=== PATIENT | female | born 1970 | race Caucasian/White ===

== ENCOUNTER 2017-09-28 11:12 | Day surgery (SDC) | payer OTHER, BC ==
[2017-09-28] MEDS ORDERED: PROCHLORPERAZINE 10 MG INJ IV (13:00)
[2017-09-28] MEDS ORDERED: DIPHENHYDRAMINE 50 MG INJ IV (13:00)
[2017-09-28] MEDS ORDERED: ONDANSETRON 4 MG INJ IV (13:00)
[2017-09-28] MEDS ORDERED: FENTAnyl 50 MCG/ML VIAL IV (13:00)
[2017-09-28] MEDS ORDERED: MEPERIDINE 25 MG INJ IV (13:00)
[2017-09-28] MEDS ORDERED: HYDROmorphONE (0.2 MG/ML) 10ML SYG IV ×3 (13:00)
[2017-09-28] MEDS ORDERED: MIDAZOLAM 1 MG/ML 2 ML INJ (13:05)
[2017-09-28] MEDS ORDERED: FENTAnyl 50 MCG/ML VIAL (13:07)
[2017-09-28] MEDS ORDERED: LABETALOL HCL 20MG INJ (13:13)
[2017-09-28] MEDS ORDERED: PROPOFOL 20 ML (13:21)
[2017-09-28] MEDS ORDERED: NEOMYC/POLYMYX/BACIT 30 GM OINT (13:31)
[2017-09-28] MEDS: LIDOCAINE 1% (MDV) 20 ML INJ (13:43)
[2017-09-28] MEDS: BUPIVACAINE 0.5% (MPF) 30 ML INJ EPI (13:48)
[2017-09-28] MEDS ORDERED: CEFAZOLIN 1 GM INJ (13:50)
[2017-09-28] MEDS: OXYCODONE/ACETAMINOPHEN (5/325) TAB PO (14:41)
== END 2017-09-28 15:18 | disposition home or self-care (01) ==
LOC: SDS 11:12
DX: D48.1 Neoplasm of uncertain behavior of connective and other soft tissue (principal); I10 Essential (primary) hypertension; E66.01 Morbid (severe) obesity due to excess calories; Z68.41 Body mass index [BMI] 40.0-44.9, adult
CPT/HCPCS: 26160; 84703; 88307